=== PATIENT | female | born 1950 | race Caucasian/White ===

== ENCOUNTER → 2024-08-18 12:50 | Outpatient (REF) | payer MEDICARE, SELFPAY | LOC: RAD 12:50 | PROVIDERS: ATTENDING PHYSICIAN Student in an Organized Health Care Education/Training Program | DX: E87.1 Hypo-osmolality and hyponatremia (principal) | CPT/HCPCS: 71046 ==

== ENCOUNTER → 2024-12-31 09:00 | Outpatient (REF) | payer MEDICARE, SELFPAY ==
[2024-12-31 09:47] LABS: Hematocrit 36.7 % (37.0-47.0); Hemoglobin 12.5 g/dL (12.0-16.0); Mean Corp Hgb Conc. 34.1 g/dL (33.0-37.0); Mean Corpuscular Hgb 32.7 pg (27.0-31.0); Mean Corpuscular Volume 96.1 fL (81.0-99.0); Mean Platelet Volume 9.1 fL (7.4-10.4); Platelet Count 299 10^3/uL (130-400); Red Blood Cell Count 3.82 10^6/uL (4.20-5.40); Red Cell Dist. Width 11.9 % (11.5-14.5); White Blood Cell Count 3.4 10^3/uL (4.8-10.8)
[2024-12-31 10:37] LABS: % Basophils 1.8 % (0-2); % Eosinophils 3.3 % (0-6); % Lymphocytes 53.6 % (20.5-51.1); % Monocytes 10.4 % (1.7-9.3); % Neutrophils 30.9 % (42.2-75.2); Absolute Basophils 0.1 10^3/uL (0-0.2); Absolute Eosinophils 0.1 10^3/uL (0-0.7); Absolute Lymphocytes 1.8 10^3/uL (1.2-3.4); Absolute Monocytes 0.4 10^3/uL (0.1-0.6); Nucleated Red Blood Cells % 0 %
[2024-12-31 10:58] LABS: Osmolality Urine 255 mOsm/kg (300-900)
[2024-12-31 11:30] LABS: Urine Sodium 93 mmol/L (30-90)
[2024-12-31 11:38] LABS: ALT (SGPT) 16 U/L (0-35); AST (SGOT) 26 U/L (14-36); Albumin 4.2 g/dl (3.5-5.0); Alkaline Phosphatase 51 U/L (38-126); Blood Urea Nitrogen 11 mg/dl (7-17); Calcium 9.7 mg/dl (8.4-10.2); Carbon Dioxide 29 mmol/L (22-30); Chloride 96 mmol/L (98-107); Glucose 81 mg/dl (70-99); HDL Cholesterol 68 mg/dl; LDL Cholesterol, Calculated 172 mg/dl; Potassium 4.1 mmol/L (3.5-5.1); Sodium 133 mmol/L (135-145); Total Bilirubin 0.5 mg/dl (0.2-1.3); Total Cholesterol 256 mg/dl (50-199); Total Protein 6.9 g/dl (6.3-8.2); Triglyceride 82 mg/dl (10-149); Very Low Density Lipoprotein 16 mg/dl (0-30); eGFR > 60.00
[2024-12-31 12:01] LABS: Vitamin D, 25-OH*** 86.2 ng/mL (30-80)
[2024-12-31 12:15] LABS: TSH Reflex To Free T4 4.12 uIU/ml (0.47-4.68)
== END ==
LOC: RCS 09:00
PROVIDERS: ATTENDING PHYSICIAN Orthopaedic Surgery; FAMILY PHYSICIAN Student in an Organized Health Care Education/Training Program
DX: Z01.818 Encounter for other preprocedural examination (principal); I10 Essential (primary) hypertension; E03.9 Hypothyroidism, unspecified; E87.1 Hypo-osmolality and hyponatremia; E78.49 Other hyperlipidemia; E55.9 Vitamin D deficiency, unspecified
CPT/HCPCS: 36415; 80053; 80061; 82306; 83935; 84300; 84443; 85025; 93005

== ENCOUNTER → 2025-01-06 13:59 | Outpatient (REF) | payer MEDICARE, SELFPAY | LOC: WDC 13:59 | PROVIDERS: ATTENDING PHYSICIAN Student in an Organized Health Care Education/Training Program | DX: Z12.31 Encounter for screening mammogram for malignant neoplasm of breast (principal) | CPT/HCPCS: 77063; 77067 ==

== ENCOUNTER → 2025-02-12 12:19 | Outpatient (REF) | payer MEDICARE, SELFPAY ==
[2025-02-12 13:34] LABS: Osmolality Serum 260 mOsm/kg (275-300)
[2025-02-12 13:52] LABS: Osmolality Urine 243 mOsm/kg (300-900)
[2025-02-12 14:12] LABS: Blood Urea Nitrogen 8 mg/dl (7-17); Calcium 9.4 mg/dl (8.4-10.2); Carbon Dioxide 22 mmol/L (22-30); Chloride 92 mmol/L (98-107); Glucose 87 mg/dl (70-99); Potassium 4.6 mmol/L (3.5-5.1); Sodium 126 mmol/L (135-145); eGFR > 60.00
[2025-02-12 15:17] LABS: Urine Sodium 47 mmol/L (30-90)
== END ==
LOC: REG 12:19
PROVIDERS: ATTENDING PHYSICIAN Student in an Organized Health Care Education/Training Program
DX: Z00.00 Encounter for general adult medical examination without abnormal findings (principal)
CPT/HCPCS: 36415; 80048; 82570; 83930; 83935; 84300

== ENCOUNTER → 2025-04-08 08:52 | Outpatient (REF) | payer MEDICARE, SELFPAY ==
[2025-04-08 11:42] LABS: Blood Urea Nitrogen 12 mg/dl (7-17); Carbon Dioxide 26 mmol/L (22-30); Chloride 97 mmol/L (98-107); Glucose 88 mg/dl (70-99); Potassium 4.7 mmol/L (3.5-5.1); Sodium 132 mmol/L (135-145); eGFR > 60.00
== END ==
LOC: REG 08:52
PROVIDERS: ATTENDING PHYSICIAN Specialist; FAMILY PHYSICIAN Student in an Organized Health Care Education/Training Program
DX: E87.1 Hypo-osmolality and hyponatremia (principal)
CPT/HCPCS: 36415; 80048

== ENCOUNTER → 2025-05-05 08:24 | Outpatient (REF) | payer MEDICARE, SELFPAY | LOC: PAVMRI 08:24 | PROVIDERS: ATTENDING PHYSICIAN Physician Assistant; FAMILY PHYSICIAN Psychiatry & Neurology Epilepsy | DX: M54.16 Radiculopathy, lumbar region (principal) | CPT/HCPCS: 72148 ==

== ENCOUNTER → 2025-07-26 11:32 | Outpatient (REF) | payer MEDICARE, SELFPAY | LOC: RAD 11:32 | PROVIDERS: ATTENDING PHYSICIAN Student in an Organized Health Care Education/Training Program | DX: R05.3 Chronic cough (principal) | CPT/HCPCS: 71046 ==

== ENCOUNTER → 2025-07-28 08:31 | Outpatient (REF) | payer MEDICARE, SELFPAY ==
[2025-07-28 13:38] LABS: Blood Urea Nitrogen 14 mg/dl (7-17); Calcium 9.3 mg/dl (8.4-10.2); Carbon Dioxide 28 mmol/L (22-30); Chloride 100 mmol/L (98-107); Glucose 72 mg/dl (70-99); Potassium 4.4 mmol/L (3.5-5.1); Sodium 135 mmol/L (135-145); eGFR > 60.00
== END ==
LOC: REG 08:31
PROVIDERS: ATTENDING PHYSICIAN Specialist; FAMILY PHYSICIAN Student in an Organized Health Care Education/Training Program
DX: E87.1 Hypo-osmolality and hyponatremia (principal)
CPT/HCPCS: 36415; 80048